=== PATIENT | female | born 1955 | race Caucasian/White ===

== ENCOUNTER 2018-02-16 14:21 | Emergency (ER) | payer MEDICARE, MEDICAID ==
[~2018-02-16] VITALS: Ht 172.7 cm; Wt 85.0 kg
[2018-02-16 15:00] LABS: HEMATOCRIT 38.1 % (37.0-47.0); HEMOGLOBIN 12.6 g/dl (12.0-16.0); IMMATURE GRANULOCYTES 0.2 % (0.0-5.0); MEAN CELL VOLUME 92.5 fL CALC (80.0-100.0); MEAN CORPUSCULAR HGB 30.6 pG CALC (26.0-32.0); MEAN CORPUSCULAR HGB CONC 33.1 g/L CALC (32.0-36.0); NEUT# 4.72 thou/uL (2.00-7.15); RED BLOOD COUNT 4.12 mill/uL (4.20-5.60); RED CELL DISTRI WIDTH 12.4 % (11.5-15.5)
[2018-02-16 15:25] LABS: ALBUMIN 4.5 g/dL (3.2-5.0); ALKALINE PHOSPHATASE 70 u/l (38-126); AMYLASE 66 u/l (30-110); ANION GAP 14 (6-22 (CALC)); BILIRUBIN, TOTAL 0.3 mg/dL (0.0-1.4); BUN 11 mg/dL (8-23); BUN/CREATININE RATIO 13 (12-20 (CALC)); CARBON DIOXIDE 22 mmol/l (22-30); CHLORIDE 110 mmol/l (95-108); CREATININE 0.9 mg/dL (0.5-1.0); GFR > 60 ML/MIN (>=60 (CALC)); GFR FOR AFR.AMER. > 60 ML/MIN (>=60 (CALC)); LIPASE 94 u/l (23-300); POTASSIUM 4.1 mmol/l (3.5-5.1); SGOT/AST 22 u/l (9-36); SODIUM 143 mmol/l (137-146); TOTAL PROTEIN 7.3 g/dL (6.3-8.2)
[2018-02-16 16:15] LABS: URINE BILIRUBIN - DIPSTICK NEGATIVE (NEGATIVE); URINE BLOOD DIPSTICK TRACE-INTACT (NEGATIVE); URINE COLOR YELLOW; URINE GLUCOSE - DIPSTICK NEGATIVE (NEGATIVE); URINE KETONE NEGATIVE (NEGATIVE); URINE LEUK ESTERASE NEGATIVE (NEGATIVE); URINE NITRITE - DIPSTICK NEGATIVE (Negative); URINE PH 6.5 (4.5-8.0); URINE PROTEIN - DIPSTICK NEGATIVE (NEG-TRACE); URINE UROBILINOGEN - DIPSTICK 0.2 E.U./dL (0.2)
[2018-02-16] MEDS ORDERED: MIRALAX3350 N1 PO (16:23)
[2018-02-16] MEDS ORDERED: MAGNESIUM296 ML/BTL PO (16:23)
[2018-02-16 16:50] VITALS: BP 144/96
== END 2018-02-16 17:15 | disposition home or self-care (01) ==
LOC: ED 14:21
PROVIDERS: Family Medicine
DX: K59.00 Constipation, unspecified (principal); F31.9 Bipolar disorder, unspecified; Z85.038 Personal history of other malignant neoplasm of large intestine; Z90.49 Acquired absence of other specified parts of digestive tract

== ENCOUNTER 2018-12-26 08:28 | Emergency (ER) | payer MEDICARE, MEDICAID ==
[~2018-12-26] VITALS: Ht 172.7 cm; Wt 90.0 kg
[~2018-12-26 08:28] MED LIST: MAGNESIUM296 ML/BTL PO; MIRALAX3350 N1 PO
[2018-12-26 09:37] LABS: URINE BILIRUBIN - DIPSTICK NEGATIVE (NEGATIVE); URINE BLOOD DIPSTICK NEGATIVE (NEGATIVE); URINE COLOR YELLOW; URINE GLUCOSE - DIPSTICK NEGATIVE (NEGATIVE); URINE KETONE NEGATIVE (NEGATIVE); URINE LEUK ESTERASE NEGATIVE (NEGATIVE); URINE NITRITE - DIPSTICK NEGATIVE (Negative); URINE PROTEIN - DIPSTICK NEGATIVE (NEG-TRACE); URINE UROBILINOGEN - DIPSTICK 0.2 E.U./dL (0.2)
[2018-12-26 09:42] LABS: COCAINE NEGATIVE (NEGATIVE); METHADONE NEGATIVE (NEGATIVE); TETRAHYDROCANNABIONOL NEGATIVE (NEGATIVE); TRICYLIC ANTIDEPRESSANTS NEGATIVE (NEGATIVE)
[2018-12-26 09:43] LABS: BARBITURATES NEGATIVE (NEGATIVE); OXCYCODONE POSITIVE (NEGATIVE)
[2018-12-26 10:34] LABS: HEMATOCRIT 38.9 % (37.0-47.0); HEMOGLOBIN 12.4 g/dl (12.0-16.0); IMMATURE GRANULOCYTES 0.2 % (0.0-5.0); MEAN CELL VOLUME 92.6 fL CALC (80.0-100.0); MEAN CORPUSCULAR HGB 29.5 pG CALC (26.0-32.0); MEAN CORPUSCULAR HGB CONC 31.9 g/L CALC (32.0-36.0); NEUT# 2.89 thou/uL (2.00-7.15); RED BLOOD COUNT 4.2 mill/uL (4.20-5.60); RED CELL DISTRI WIDTH 12.6 % (11.5-15.5)
[2018-12-26 10:43] LABS: ANION GAP 12 (6-22 (CALC)); BUN 18 mg/dL (8-23); BUN/CREATININE RATIO 17 (12-20 (CALC)); CARBON DIOXIDE 23 mmol/l (22-30); CHLORIDE 112 mmol/l (95-108); CREATININE 1.1 mg/dL (0.5-1.0); ETHYL ALCOHOL 0 mg/dl (0-30); GFR 50 ML/MIN (>=60 (CALC)); GFR FOR AFR.AMER. > 60 ML/MIN (>=60 (CALC)); POTASSIUM 4.3 mmol/l (3.5-5.1); SODIUM 142 mmol/l (137-146)
[2018-12-26 11:14] VITALS: BP 137/86
[2018-12-26] MEDS ORDERED: XANAX1 MG PO (12:02)
[2018-12-26] MEDS ORDERED: ALLERGY RELF10 M3 PO (12:03)
[2018-12-26] MEDS ORDERED: BUPROPION150 M4 PO (12:03)
[2018-12-26] MEDS ORDERED: CYCLOBENZAPR10 MG PO (12:04)
[2018-12-26] MEDS ORDERED: LEVOTHYROXIN50 MCG PO (12:05)
[2018-12-26] MEDS ORDERED: EPIPEN 2-P0.3 MG/0.3 SC (12:05)
[2018-12-26] MEDS ORDERED: OXYCOD-APAP1 TA1 PO (12:06)
[2018-12-26] MEDS ORDERED: PREDNISONE20 MG PO (12:06)
[2018-12-26] MEDS ORDERED: TOPIRAMATE100 MG PO (12:07)
== END 2018-12-26 11:18 | disposition home or self-care (01) ==
LOC: ED 08:28
PROVIDERS: Family Medicine
DX: R51 Headache (principal)

== ENCOUNTER 2019-07-04 | Emergency (ER) | payer MEDICARE, MEDICAID ==
[~2019-07-04] MED LIST changes: +ALLERGY RELF10 M3 PO; +BUPROPION150 M4 PO; +CYCLOBENZAPR10 MG PO; +EPIPEN 2-P0.3 MG/0.3 SC; +LEVOTHYROXIN50 MCG PO; +OXYCOD-APAP1 TA1 PO; +PREDNISONE20 MG PO; +TOPIRAMATE100 MG PO; +XANAX1 MG PO
== END 2019-07-04 13:18 | disposition home or self-care (01) ==
PROC: 2W3AXYZ Immobilization of Right Upper Arm using Other Device (ICD-10-PCS; principal; 2019-07-04)
DX: M25.511 Pain in right shoulder (principal)

== ENCOUNTER 2022-06-19 18:27 | Emergency (ER) | payer MEDICARE, MEDICAID ==
[2022-06-19] VITALS (9 sets, daily range): BP systolic 136–171; BP diastolic 86–112
[~2022-06-19] VITALS: Ht 172.7 cm; Wt 89.0 kg
[2022-06-19 20:41] LABS: HEMATOCRIT 44.1 % (37.0-47.0); HEMOGLOBIN 13.8 g/dl (12.0-16.0); IMMATURE GRANULOCYTES 0.1 % (0.0-5.0); LYMPH% 37.3 % (15-41); MEAN CELL VOLUME 95.2 fL CALC (80.0-100.0); MEAN CORPUSCULAR HGB 29.8 pG CALC (26.0-32.0); MEAN CORPUSCULAR HGB CONC 31.3 g/dL CAL (32.0-36.0); NEUT% 56.5 % (42-76); RED BLOOD COUNT 4.63 mill/uL (4.20-5.60)
[2022-06-19 20:42] LABS: BASO% 0.6 % (0-3); EOS% 0.9 % (0-8); MONO% 4.6 % (2-13); NEUT# 4.51 thou/uL (2.00-7.15)
[2022-06-19 20:59] LABS: ALBUMIN 4.7 g/dL (3.2-5.0); ALKALINE PHOSPHATASE 79 u/l (38-126); AMYLASE 75 u/l (30-110); ANION GAP 12 (6-22 (CALC)); BUN 11 mg/dL (8-23); BUN/CREATININE RATIO 11 (12-20 (CALC)); CARBON DIOXIDE 26 mmol/l (22-30); CHLORIDE 107 mmol/l (95-108); ETHYL ALCOHOL 0 mg/dl (0-30); GFR FOR AFR.AMER. > 60 ML/MIN (>=60 (CALC)); GFR OTHER RACES 55 ML/MIN (>=60 (CALC)); LIPASE 51 u/l (23-300); PROTHROMBIN TIME 10.3 SECONDS (9.0-12.5); SGOT/AST 37 u/l (9-36); SODIUM 140 mmol/l (137-146); TOTAL PROTEIN 7.9 g/dL (6.3-8.2)
[2022-06-19 21:00] LABS: BILIRUBIN, TOTAL 0.5 mg/dL (0.02-1.3)
[2022-06-19] MEDS ORDERED: ANUCORT-HC25 MG RE (22:10)
== END 2022-06-19 22:52 | disposition home or self-care (01) ==
LOC: ED 18:27
PROVIDERS: Emergency Medicine
DX: K64.9 Unspecified hemorrhoids (principal); F31.9 Bipolar disorder, unspecified; Z85.038 Personal history of other malignant neoplasm of large intestine; Z90.49 Acquired absence of other specified parts of digestive tract
CPT/HCPCS: S0164